=== PATIENT | female | born 1950 | race Caucasian/White ===

== ENCOUNTER 2020-02-15 09:50 | Day surgery (SDC) | payer MEDICARE ==
[~2020-02-15] VITALS: Ht 160 cm; Wt 76.0 kg
[2020-02-15] VITALS (16 sets, daily range): BP systolic 129–157; BP diastolic 55–77
[~2020-02-15 09:50] MED LIST: CARV-50 PO; DOCUMENT DATE & TIME OF BETA-BLOCKER PO ONE; ESOM20CA10 PO; LEVO100T9 PO; LOVA40TA2 PO; MAGN400C PO; MONT10TA26 PO; OMAL150V INJ; TRANEXAMIC ACID 1 GM IN NACL,ISO-OS 100 ML IV ONE; TRIA1TAB5 PO; cefazolin/dext.iso 2gm/100ml 100 ML IV ONE; famotidine 20mg tablet PO ONE; ringers solution, lacted 1,000 ML IV SCH; vancomycin 1,500 MG in NS 500ml IV soln IV ONE
[2020-02-15] MEDS ORDERED: epiNEPHrine 1 mg/ml inj ONE (12:59)
[2020-02-15] MEDS ORDERED: morphine 10mg/ml inj. ONE (12:59)
[2020-02-15] MEDS ORDERED: vancomycin 1,000mg inj ONE (12:59)
[2020-02-15] MEDS ORDERED: ketorolac trometh. 30mg/ml inj. ONE (12:59)
[2020-02-15] MEDS ORDERED: ceFAZolin 1000mg inj ONE (12:59)
[2020-02-15] MEDS ORDERED: ROPIVAcaine 0.5% (5mg/ml) 30ml vial ONE (12:59)
[2020-02-15] MEDS ORDERED: ringers solution, lacted 1,000 ML IV SCH (13:09)
[2020-02-15] MEDS ORDERED: HYDROmorphone inj. 0.5 MG/0.5 ML DISP.SYRIN IV PRN ×3 (13:10→17:15)
[2020-02-15] MEDS ORDERED: ondansetron/PF 4mg/2ml inj IV PRN ×2 (13:10→17:15)
[2020-02-15] MEDS ORDERED: morphine 2 MG/ML inj. syringe IV PRN (13:10)
[2020-02-15] MEDS ORDERED: ROPIVAcaine 0.2%/PF PUMP/bolus 550 ML ADDCANAL SCH (13:10)
[2020-02-15] MEDS ORDERED: meperidine/PF 25mg/ml syringe IV PRN (13:10)
[2020-02-15] MEDS ORDERED: proCHLORperazine 10 MG/2 ml inj IV PRN (13:10)
[2020-02-15] MEDS ORDERED: morphine 4 MG/ML inj SYRINge IV PRN (13:10)
[2020-02-15] MEDS ORDERED: ROPIVAcaine 0.2% (10 MG/5 ML) BOLUS INJECTION ADDCANAL PRN (13:15)
[2020-02-15 13:29] LABS: BASOPHILS % (AUTO) 0.9 % (0-1); EOSINOPHILS # (AUTO) 0.2 X10'3 (0-0.9); EOSINOPHILS % (AUTO) 2.9 % (0-6); LYMPHOCYTES # (AUTO) 2.6 X10'3 (1.1-4.8); LYMPHOCYTES % (AUTO) 45.5 % (21-51); MEAN CORPUSCULAR HEMOGLOBIN 32.8 PG (27.0-31.0); MEAN CORPUSCULAR HGB CONC 34.1 g/dL (33.0-36.5); MEAN CORPUSCULAR VOLUME 95.9 FL (78-98); MEAN PLATELET VOLUME 8.5 FL (7.4-10.4); MONOCYTES # (AUTO) 0.4 X10'3 (0-0.9); MONOCYTES % (AUTO) 7.9 % (2-12); NEUTROPHILS # (AUTO) 2.4 X10'3 (1.8-7.7); NEUTROPHILS % (AUTO) 42.8 % (42-75); PRE OP HEMATOCRIT 41.5 % (35.0-45.0); PRE OP HEMOGLOBIN 14.2 g/dL (12.0-16.0); PRE OP PLATELET COUNT 263 X10'3 (140-440); RED BLOOD COUNT 4.33 X10'6 (4.20-5.60); RED CELL DISTRIBUTION WIDTH 12.7 % (11.5-14.5)
[2020-02-15 13:54] LABS: ALBUMIN/GLOBULIN RATIO 1.1 (1.1-1.5); ALKALINE PHOSPHATASE 72 IU/L (46-116); BLOOD UREA NITROGEN 14 MG/DL (7-18); BUN/CREATININE RATIO 15.2 (6.6-38.0); CALCIUM 9.1 MG/DL (8.5-10.1); CHLORIDE 103 MMOL/L (99-107); CREATININE 0.92 MG/DL (0.40-0.90); PRE OP ALT 43 U/L (30-65); PRE OP ANION GAP 9 (8-16); PRE OP AST 25 U/L (10-37); PRE OP BILIRUB, TOTAL 0.8 MG/DL (0.0-1.0); PRE OP GLUCOSE 98 MG/DL (70-104); PRE OP SODIUM 140 MMOL/L (135-145); TOTAL CARBON DIOXIDE 28.5 MMOL/L (24-32); TOTAL PROTEIN 7.5 G/DL (6.4-8.2); eGFR 61 ML/MIN
[2020-02-15 13:55] LABS: PRE OP POTASSIUM 3.2 MMOL/L (3.4-5.1)
[2020-02-15] MEDS ORDERED: midazolam 2 mg/2 ml injection ONE (14:58)
[2020-02-15] MEDS ORDERED: sevoflurane 250ml liquid IH ONE (14:59)
[2020-02-15] MEDS ORDERED: ondansetron/PF 4mg/2ml inj ONE ×2 (14:59→15:25)
[2020-02-15] MEDS ORDERED: fentaNYL /PF 50mcg/ml 5ml ampule ONE (15:00)
[2020-02-15] MEDS ORDERED: LIDOcaine 2% (20mg/ml) 5ml vial ONE (15:24)
[2020-02-15] MEDS ORDERED: propofol inj 20 ML IV ONE (15:24)
[2020-02-15] MEDS ORDERED: dexamethasone sod phosphate 4mg/ml inj. ONE (15:24)
[2020-02-15] MEDS ORDERED: acetaminophen 325mg tablet PO PRN (17:15)
[2020-02-15] MEDS ORDERED: magnesium hydroxide 30ml (MOM) UD suspension PO PRN (17:15)
[2020-02-15] MEDS ORDERED: oxyCODONE IR 5mg (immed. release) tablet PO PRN ×2 (17:15)
[2020-02-15] MEDS ORDERED: diphenhydrAMINE 25mg capsule PO PRN ×2 (17:15)
[2020-02-15] MEDS ORDERED: bisacodyl 10mg suppository rectal RC PRN (17:15)
--- NOTE | 2020-02-15 17:44 | NUR ---
Received from OR via ORTHO BED WITH MAKITA , accompanied by Anesthesiologist MAR and report given by Anesthesiolgist. PATIENT WITH KNEE WRAP, BERNARD DRAIN AND ON Q SITE. + DP PRESENT. PATIENT WITH 20G PIV IN LEFT UE RUNNING LR AT 100. GOODMAN CATHETER PRESENT AND HAS CLEAR YELLOW URINE PRESENT. 10L MASK ON , DENIES PAIN.+ DP AND MOVES ALL TOES ON AFFECTED LIMB. Addendum: 02/15/20 at 1759 by Herve Diaz RN, RN Amended: Links added.
[2020-02-15] MEDS ORDERED: OMALIZUMAB 150 MG INJ SCH (17:50)
--- NOTE | 2020-02-15 18:54 | NUR ---
Patient has met criteria for transfer to floor. Patient vss. Pain at a tolerable level. Transferred via bed to room where they were hooked to vitals and RN notified patient has arrived. Bed low, call light within reach, 2-3 rails up, vss, belongings placed in room. Care turned over to RN. Addendum: 02/15/20 at 1859 by Herve Reis - LETICIA RN Amended: Links added.
[2020-02-15] MEDS ORDERED: potassium cl 20mEq in 1/2 NS 1,000 ML IV SCH (19:05)
--- NOTE | 2020-02-15 19:11 | NUR ---
RECEIVED PATIENT FROM MAC KELLY AND ASSUMED PATIENT CARE. PATIENT C/O 5/10 PAIN. AWAKES TO VOICE BUT SLEEPY. WILL CONTINUE TO MONITOR.
[2020-02-15] MEDS ORDERED: vancomycin/NS 1 GM ADD-VANTAGE 250 ML IV SCH (20:00)
[2020-02-15] MEDS ORDERED: tranexamic acid 1gm/0.7% sal. 100 ML IV ONE (20:15)
[2020-02-15] MEDS: carVEDilol 12.5mg tablet PO SCH (20:51)
[2020-02-15] MEDS: acetaminophen 325mg tablet PO SCH (20:51)
[2020-02-15] MEDS: gabapentin 300mg capsule PO SCH (20:51)
[2020-02-15] MEDS ORDERED: sennosides 8.6mg tablet PO SCH (21:00)
[2020-02-16] MEDS: ceFAZolin 1GM/D5W- ADD-VANTAGE 50 ML IV SCH ×2 (00:52→07:41)
[2020-02-16 02:00] VITALS: BP 143/70
[2020-02-16] MEDS: acetaminophen 325mg tablet PO SCH ×2 (02:00→07:39)
[2020-02-16] MEDS ORDERED: ASPI-1 PO (05:59)
[2020-02-16] MEDS ORDERED: ONQPUMP ADDCANAL (05:59)
[2020-02-16 06:00] VITALS: BP 129/68
--- NOTE | 2020-02-16 06:20 | NUR ---
RECEIVED REPORT FROM LETICIA MITCHELL
[2020-02-16] MEDS ORDERED: WALKERFR (07:28)
[2020-02-16] MEDS: gabapentin 300mg capsule PO SCH (07:36)
[2020-02-16] MEDS: carVEDilol 12.5mg tablet PO SCH (07:44)
[2020-02-16] MEDS ORDERED: levoTHYROXINE 100mcg tablet PO SCH (08:00)
[2020-02-16] MEDS ORDERED: magnesium oxide 400mg tablet PO SCH (08:00)
[2020-02-16] MEDS ORDERED: pantoprazole 40mg Tablet.DR PO SCH (08:00)
[2020-02-16] MEDS ORDERED: montelukast 10mg tablet PO SCH (08:00)
[2020-02-16] MEDS ORDERED: atorvastatin 10mg tablet PO SCH (08:00)
[2020-02-16] MEDS ORDERED: aspirin 325mg tablet PO SCH (08:30)
[2020-02-16] MEDS ORDERED: triamterene/HCTZ 37.5/25mg tablet PO SCH ×3 (10:03→10:04)
--- NOTE | 2020-02-16 10:12 | NUR ---
PT D/C WITH INSTRUCTIONS, UNDERSTANDING OF INSTRUCTIONS AND W/ALL BELONGINGS IN WHEELCHAIR TO PRIVATE VEHICLE TO GO HOME AND F/U W/PCP PT SENT W/2 POWDER PACKS AND 2 ISLAND DRESSINGS AWARE OF PT K LEVEL AND PT K WAS REPLACED ON NOC SHIFT
[2020-02-16] MEDS ORDERED: celeCOXIB 100mg capsule PO SCH (20:00)
[2020-02-17] MEDS ORDERED: acetaminophen 325mg tablet PO PRN (17:15)
== END 2020-02-16 10:12 | disposition home or self-care (01) ==
LOC: PAS 09:50 → EDSTATUS 13:00 → ORTHO 4S 18:55 → PAS IN 18:55 → ORTHO 4S 18:55 → PAS 02-16 10:12
PROVIDERS: ATTEND Orthopaedic Surgery
DX: M17.12 Unilateral primary osteoarthritis, left knee (principal); M25.762 Osteophyte, left knee; G89.18 Other acute postprocedural pain; K21.9 Gastro-esophageal reflux disease without esophagitis; I10 Essential (primary) hypertension; E03.9 Hypothyroidism, unspecified; E78.5 Hyperlipidemia, unspecified; J44.9 Chronic obstructive pulmonary disease, unspecified; Z79.82 Long term (current) use of aspirin; Z79.899 Other long term (current) drug therapy; Z88.5 Allergy status to narcotic agent; Z98.890 Other specified postprocedural states; Z90.710 Acquired absence of both cervix and uterus; Z11.59 Encounter for screening for other viral diseases
CPT/HCPCS: 27446; 36415; 64448; 73560; 80053; 85025; 87081; 87635; 93005; 97110; 97161; 97530; C1713; C1758; C1776; C9250; J0171; J0690; J1100; J1170; J1885; J2001; J2175; J2250; J2270; J2405; J2704; J2795; J3010; J3370; J7040; J7050; J7120; A4215; A4618; A7000; G0378; J3480